=== PATIENT | male | born 1925 | race Two or more races ===

== ENCOUNTER 2016-12-07 21:33 | Emergency (ER) | payer MEDICARE, OTHER ==
[2016-12-07 22:10] LABS: Basophils # (auto) 0 uL; Basophils % (auto) 0.3 % (0.0-2.0); Eosinophils # (auto) 0.1 uL; Hematocrit 39.4 % (41.0-53.0); Hemoglobin 13.2 g/dL (13.5-17.5); Lymphocytes # (auto) 2.5 uL; Lymphocytes % (auto) 47.4 % (10.0-50.0); Mean Corpuscular Hgb Conc. 33.6 g/dL (32.0-36.0); Mean Corpuscular Volume 95.4 fL (80.0-100.0); Mean Platelet Volume 8.2 fL (7.4-10.4); Monocytes # (auto) 0.4 uL; Monocytes % (auto) 8.3 % (0.0-12.0); Neutrophils # (auto) 2.2 uL; Platelet Count (auto) 196 10^3/uL (140-450); Red Cell Distribution Width 13.4 % (11.6-16.0); White Blood Cell 5.3 10^3/uL (4.4-10.8)
[2016-12-07 22:20] LABS: Albumin 3.4 g/dL (3.4-5.0); Aspartate Aminotransferase 25 U/L (15-37); Blood Urea Nitrogen 20 mg/dL (7-18); Calcium 8.7 mg/dL (8.5-10.1); Carbon Dioxide 24 mmol/L (21-32); GFR African American 90 mL/min; GFR Non-African American 75 mL/min; Glucose 112 mg/dL (74-106); Magnesium 2.1 mg/dL (1.6-2.6)
[2016-12-07 22:34] LABS: Alkaline Phosphatase 85 U/L (45-117); Anion Gap 13 (5-15); Bilirubin, Total 0.4 mg/dL (0.2-1.0); Chloride 109 mmol/L (98-107); Sodium 146 mmol/L (136-145); Total Protein 6.8 g/dL (6.4-8.2)
[2016-12-07] MEDS ORDERED: MANNITOL 20% SOLN 100 gm/500ml 250 ML IV ONE (23:15)
[2016-12-07] MEDS ORDERED: DEXAMETHASONE SOD PHOS 10MG/1ML VIAL INJ IV ONE (23:15)
[2016-12-07] MEDS ORDERED: MANNITOL FTV 25% 12.5 GM/50 ML 50 ML IV ONE ×2 (23:32→23:48)
[2016-12-07] MEDS ORDERED: MANNITOL FTV 25% 12.5 GM/50 ML 100 ML IV ONE (23:33)
[2016-12-07] MEDS ORDERED: ETOMIDATE (2MG/ML) 20ML VIAL IV ONE (23:45)
[2016-12-07] MEDS ORDERED: SUCCINYLCHOLINE CHLORIDE 20 MG/ML 10ML VIAL IV ONE (23:46)
[2016-12-08] MEDS ORDERED: ETOMIDATE (2MG/ML) 20ML VIAL IV ONE
[2016-12-08] MEDS ORDERED: SUCCINYLCHOLINE CHLORIDE 20 MG/ML 10ML VIAL IV ONE
[2016-12-08 00:05] LABS: INR 1.06 (0.9-1.15); Partial Thromboplastin Time 24.3 sec (22.64-33.71); Prothrombin Time 11.4 sec (9.37-12.3)
[2016-12-08] MEDS ORDERED: MIDAZOLAM DRIP 100 mg/100mL NS 100 ML IV ONE ×2 (00:13→02:23)
[2016-12-08] MEDS ORDERED: MIDAZOLAM DRIP 100 mg/100mL NS 100 ML IV SCH (01:02)
[2016-12-08 02:31] VITALS: BP 144/63
== END 2016-12-08 02:40 | disposition short-term general hospital (02) ==
LOC: ER 21:42
DX: I62.9 Nontraumatic intracranial hemorrhage, unspecified (principal); I10 Essential (primary) hypertension
CPT/HCPCS: 31500; 36415; 51702; 70450; 71010; 72125; 80053; 83735; 84484; 85025; 85610; 85730; 93005; 94002; 96365; 96366; 96375; 99291; J0330; J1100; J2150